=== PATIENT | female | born 1955 | race Caucasian/White ===

== ENCOUNTER 2017-04-16 19:50 | Emergency (ER) | payer OTHER, MEDICAID ==
[~2017-04-16] VITALS: Ht 172.7 cm; Wt 99.8 kg
[2017-04-16 21:06] LABS: Basophils # (auto) 0 uL; Basophils % (auto) 0.2 % (0.0-2.0); Eosinophils # (auto) 0.1 uL; Eosinophils % (auto) 0.7 % (0.0-7.0); Hemoglobin 12.2 g/dL (12.2-16.2); Lymphocytes # (auto) 1.8 uL; Lymphocytes % (auto) 18.8 % (10.0-50.0); Mean Corpuscular Hemoglobin 29.9 pg (28.0-32.0); Mean Corpuscular Hgb Conc. 32.9 g/dL (32.0-36.0); Mean Platelet Volume 9.7 fL (6.9-10.8); Monocytes # (auto) 0.7 uL; Monocytes % (auto) 7.8 % (0.0-12.0); Neutrophils # (auto) 6.8 uL; Neutrophils % (auto) 72.5 % (37.0-80.0); Platelet Count (auto) 171 10^3/uL (140-450); Red Cell Distribution Width 13.6 % (11.8-14.3); White Blood Cell 9.4 10^3/uL (4.4-10.8)
[2017-04-16 21:31] LABS: Albumin 3.5 g/dL (3.4-5.0); Alkaline Phosphatase 92 U/L (45-117); Anion Gap 7 (5-15); Aspartate Aminotransferase 16 U/L (15-37); BUN/Creatinine Ratio 27.3; Bilirubin, Total 0.3 mg/dL (0.2-1.0); Blood Urea Nitrogen 35 mg/dL (7-18); Calcium 8.7 mg/dL (8.5-10.1); Carbon Dioxide 26 mmol/L (21-32); Chloride 107 mmol/L (98-107); GFR African American 55 mL/min; GFR Non-African American 45 mL/min; Glucose 128 mg/dL (74-106); Potassium 4.3 mmol/L (3.5-5.1); Sodium 140 mmol/L (136-145)
[2017-04-16] MEDS ORDERED: ONDANSETRON HCL 4 MG/2 ML VIAL IV ONE (23:00)
[2017-04-17] MEDS ORDERED: ACETAMINOPHEN 325 MG TAB PO ONE (02:58)
[2017-04-17 04:46] VITALS: BP 118/64
== END 2017-04-17 06:26 | disposition home or self-care (01) ==
LOC: EDBD 19:50 → ER 20:06
DX: K29.70 Gastritis, unspecified, without bleeding (principal); I48.91 Unspecified atrial fibrillation; E78.5 Hyperlipidemia, unspecified; I10 Essential (primary) hypertension; Z86.73 Personal history of transient ischemic attack (TIA), and cerebral infarction without residual deficits
CPT/HCPCS: 36415; 71010; 74176; 80053; 84484; 85025; 93005; 96374; 99285; J2405

== ENCOUNTER 2017-12-03 08:28 | Inpatient (IN) | payer OTHER, MEDICAID ==
[~2017-12-03] VITALS: Ht 170.2 cm; Wt 150.1 kg
[2017-12-03] MEDS ORDERED: ALBUTEROL SULF 2.5 MG/0.5ML(0.5%) NEB SOLN NEB ONE (09:15)
[2017-12-03] MEDS ORDERED: IPRATROPIUM BROM 0.5 MG/2.5ML INH SOL NEB ONE (09:15)
[2017-12-03 10:26] LABS: Basophils # (auto) 0.1 uL; Eosinophils # (auto) 0.5 uL; Lymphocytes # (auto) 0.9 uL; Monocytes # (auto) 0.6 uL; Neutrophils # (auto) 4.4 uL; Nucleated Red Blood Cells % 0.1 %
[2017-12-03 10:29] LABS: Eosinophils % (auto) 7.6 % (0.0-7.0); Hematocrit 36.8 % (36.0-46.0); Lymphocytes % (auto) 14.2 % (10.0-50.0); Mean Corpuscular Hgb Conc. 29.8 g/dL (32.0-36.0); Mean Corpuscular Volume 90.4 fL (80.0-100.0); Monocytes % (auto) 8.8 % (0.0-12.0); Neutrophils % (auto) 68.4 % (37.0-80.0); Platelet Count (auto) 134 10^3/uL (140-450); Red Blood Cells 4.07 10^6/uL (4.0-5.20); Red Cell Distribution Width 16.1 % (11.8-14.3); White Blood Cell 6.4 10^3/uL (4.4-10.8)
[2017-12-03 10:45] LABS: Alanine Aminotransferase 14 U/L (13-56); Alkaline Phosphatase 82 U/L (45-117); Anion Gap 7 (5-15); Aspartate Aminotransferase 15 U/L (15-37); BUN/Creatinine Ratio 13.6; Bilirubin, Total 0.5 mg/dL (0.2-1.0); Blood Urea Nitrogen 39 mg/dL (7-18); Calcium 7.8 mg/dL (8.5-10.1); Carbon Dioxide 27 mmol/L (21-32); Chloride 108 mmol/L (98-107); GFR African American 22 mL/min; GFR Non-African American 18 mL/min; Glucose 92 mg/dL (74-106); Sodium 142 mmol/L (136-145); Total Protein 7.4 g/dL (6.4-8.2)
[2017-12-03 10:51] LABS: Potassium 5.8 mmol/L (3.5-5.1)
[2017-12-03] MEDS ORDERED: ALBUTEROL SULF 2.5 MG/0.5ML(0.5%) NEB SOLN NEB STA (11:01)
[2017-12-03] MEDS ORDERED: SODIUM POLYSTYRENE SULF 15GM/60ML SUSP PO ONE (11:15)
[2017-12-03] MEDS ORDERED: FUROSEMIDE 40 MG/4 ML VIAL IV ONE ×2 (11:15→12:45)
[2017-12-03] MEDS ORDERED: SODIUM BICARBONATE 8.4% INJ 50ML SYRINGE IV ONE (11:15)
[2017-12-03] MEDS ORDERED: DEXTROSE (50%) 50ML SYRG IV ONE (11:15)
[2017-12-03] MEDS ORDERED: CALCIUM GLUC 4.65meq/50ml D5AE 50 ML IV ONE (11:15)
[2017-12-03] MEDS ORDERED: InsuLIN REG 1unit/0.01ml Soln (100units/ml) IV ONE (11:15)
[2017-12-03] MEDS ORDERED: DEXTROSE (50%) 50ML SYRG IV PRN (12:30)
[2017-12-03] MEDS ORDERED: LACTULOSE 20Gm/30ML SOLN PO PRN (12:30)
[2017-12-03] MEDS ORDERED: ACETAMINOPHEN 500 MG TAB PO PRN (12:30)
[2017-12-03] MEDS ORDERED: MORPHINE SULFATE 8mg/ml INJ SDV IV PRN ×2 (12:30)
[2017-12-03] MEDS ORDERED: TEMAZEPAM 15 MG CAP PO PRN (12:30)
[2017-12-03] MEDS ORDERED: PROMETHAZINE HCL 25 MG/ML 1ML IV PRN (12:30)
[2017-12-03] MEDS ORDERED: LORazepam 0.5 MG TAB PO PRN (12:30)
[2017-12-03] MEDS ORDERED: ALBUTEROL SULF 2.5 MG/0.5ML(0.5%) NEB SOLN NEB PRN (12:30)
[2017-12-03] MEDS ORDERED: NITROGLYCERIN 0.4 MG SL TAB SL PRN (12:30)
[2017-12-03] MEDS ORDERED: ENOXAPARIN SOD 40 MG/0.4 ML SYRINGE SC ONE (12:45)
[2017-12-03] MEDS ORDERED: CARVEDILOL 3.125 MG TAB PO ONE (12:45)
[2017-12-03] MEDS ORDERED: ASPirin 81 mg TAB PO ONE (12:45)
[2017-12-03] MEDS ORDERED: ENOXAPARIN SOD 100 MG/1 ML SYRINGE SC ONE (13:15)
[2017-12-03] MEDS: SODIUM CHLOR 0.9% PF (SALINE LOCK) 10ML VIAL/SYR IV SCH ×2 (13:20→22:00)
[2017-12-03 13:35] VITALS: BP 104/53
[2017-12-03] MEDS: ISOSORBIDE DINITRATE 10 MG TAB PO SCH ×2 (13:36→22:00)
[2017-12-03 14:11] LABS: Folate (Folic Acid) 16.85 ng/mL (5.38-24)
[2017-12-03 14:55] LABS: Urine Bacteria NONE SEEN /hpf (None Seen); Urine Blood Negative /uL (Negative); Urine Specific Gravity 1.008 (1.001-1.035); Urine WBC 1 /hpf (0 - 5)
[2017-12-03 15:09] LABS: Alcohol, Urine < 3.0 mg/dL (0-5); Amphetamine Screen, Urine NEGATIVE (NEGATIVE); Barbiturate Scree,Urine NEGATIVE (NEGATIVE); Benzodiazephine Screen, Urine NEGATIVE (NEGATIVE); Cannabinoid Screen, Urine NEGATIVE (NEGATIVE); Cocaine Screen, Urine NEGATIVE (NEGATIVE); Opiate Scree,Urine NEGATIVE (NEGATIVE); Phencyclidine Screen, Urine NEGATIVE (NEGATIVE)
[2017-12-03 16:10] LABS: Cholesterol 104 mg/dL (< 200); HDL Cholesterol 43 mg/dL (40-59); LDL Cholesterol 57 mg/dL (< 100); Triglycerides 85 mg/dL (< 150)
[2017-12-03 16:33] LABS: INR 1.33 (0.9-1.15)
[2017-12-03] MEDS ORDERED: WARFARIN SODIUM 5 MG TAB PO ONE (17:00)
[2017-12-03] MEDS: InsuLIN REG 1unit/0.01ml Soln (100units/ml) SC SCH ×2 (17:00→22:00)
[2017-12-03] MEDS: ACCU-CHEK COMFORT CURVE STRIP VI SCH ×2 (17:01→22:00)
[2017-12-03] MEDS ORDERED: FUROSEMIDE 20 MG/2 ML VIAL IV SCH (18:00)
[2017-12-03] MEDS: IPRATROPIUM BROM 0.5 MG/2.5ML INH SOL NEB SCH (18:15)
[2017-12-03] MEDS: ALBUTEROL SULF 2.5 MG/0.5ML(0.5%) NEB SOLN NEB SCH (18:15)
[2017-12-03] MEDS ORDERED: CLINDAMYCIN 600MG IV 50 ML IV ONE (19:30)
[2017-12-03] MEDS ORDERED: cefTRIAXone 1GM/10ml IVPUSH 10 ML IV ONE (19:30)
[2017-12-03] MEDS: FUROSEMIDE 40 MG/4 ML VIAL IV SCH (22:00)
[2017-12-03] MEDS: CARVEDILOL 3.125 MG TAB PO SCH (22:00)
[2017-12-03] MEDS ORDERED: ATORVASTATIN 20 MG TAB PO SCH (22:00)
[2017-12-03] MEDS: ATORVASTATIN 20 MG TAB PO SCH (22:00)
[2017-12-04] MEDS: CLINDAMYCIN 600MG IV 50 ML IV SCH ×3 (02:00→17:21)
[2017-12-04] MEDS: SODIUM CHLOR 0.9% PF (SALINE LOCK) 10ML VIAL/SYR IV SCH ×3 (06:00→22:00)
[2017-12-04] MEDS: ISOSORBIDE DINITRATE 10 MG TAB PO SCH ×3 (06:00→22:00)
[2017-12-04] MEDS: IPRATROPIUM BROM 0.5 MG/2.5ML INH SOL NEB SCH ×4 (06:27→19:08)
[2017-12-04] MEDS: ALBUTEROL SULF 2.5 MG/0.5ML(0.5%) NEB SOLN NEB SCH ×4 (06:27→19:08)
[2017-12-04 06:40] LABS: Basophils # (auto) 0.1 uL; Lymphocytes # (auto) 0.9 uL; Monocytes # (auto) 0.6 uL; Platelet Count (auto) 123 10^3/uL (140-450); Red Cell Distribution Width 16.4 % (11.8-14.3); White Blood Cell 6.1 10^3/uL (4.4-10.8)
[2017-12-04 06:41] LABS: Basophils % (auto) 1.3 % (0.0-2.0); Eosinophils # (auto) 0.6 uL; Eosinophils % (auto) 10.6 % (0.0-7.0); Hemoglobin 10.4 g/dL (12.2-16.2); Lymphocytes % (auto) 14.9 % (10.0-50.0); Mean Corpuscular Hgb Conc. 30.6 g/dL (32.0-36.0); Mean Corpuscular Volume 91.3 fL (80.0-100.0); Monocytes % (auto) 10.3 % (0.0-12.0); Neutrophils # (auto) 3.9 uL; Neutrophils % (auto) 62.9 % (37.0-80.0); Nucleated Red Blood Cells % 0.4 %; Red Blood Cells 3.72 10^6/uL (4.0-5.20)
[2017-12-04] MEDS ORDERED: ALBUMIN 5% 250 ML IV ONE (06:45)
[2017-12-04 06:53] LABS: INR 1.33 (0.9-1.15); Partial Thromboplastin Time 32.3 sec (23.78-33.04)
[2017-12-04 06:59] LABS: Albumin 2.7 g/dL (3.4-5.0); BUN/Creatinine Ratio 16.2; Bilirubin, Total 0.4 mg/dL (0.2-1.0); Calcium 7.8 mg/dL (8.5-10.1); Potassium 5.5 mmol/L (3.5-5.1); Total Protein 6.9 g/dL (6.4-8.2)
[2017-12-04] MEDS: InsuLIN REG 1unit/0.01ml Soln (100units/ml) SC SCH ×4 (07:00→22:00)
[2017-12-04] MEDS: ACCU-CHEK COMFORT CURVE STRIP VI SCH ×4 (07:22→22:00)
[2017-12-04] MEDS: cefTRIAXone 1GM/10ml IVPUSH 10 ML IV SCH (09:20)
[2017-12-04] MEDS: ENOXAPARIN SOD 40 MG/0.4 ML SYRINGE SC SCH (09:30)
[2017-12-04] MEDS ORDERED: ENOXAPARIN SOD 40 MG/0.4 ML SYRINGE SC SCH (10:00)
[2017-12-04] MEDS: CARVEDILOL 3.125 MG TAB PO SCH ×2 (10:00→22:00)
[2017-12-04] MEDS ORDERED: ASPirin 81 mg TAB PO SCH (10:00)
[2017-12-04] MEDS ORDERED: SODIUM POLYSTYRENE SULF 15GM/60ML SUSP PR ONE (11:00)
[2017-12-04] MEDS ORDERED: ALBUTEROL SULF 2.5 MG/0.5ML(0.5%) NEB SOLN NEB ONE (11:00)
[2017-12-04] MEDS ORDERED: ALBUTEROL SULF 2.5 MG/0.5ML(0.5%) NEB SOLN ONE (11:57)
[2017-12-04] MEDS: SODIUM CHLORIDE 0.9% 1,000 ML IV SCH (12:10)
[2017-12-04] MEDS: FUROSEMIDE 40 MG/4 ML VIAL IV SCH ×2 (14:00→22:00)
[2017-12-04] MEDS ORDERED: WARFARIN SODIUM 5 MG TAB PO ONE (17:00)
[2017-12-04 20:00] VITALS: BP 137/83
[2017-12-04] MEDS: ATORVASTATIN 20 MG TAB PO SCH (22:00)
[2017-12-05] VITALS (10 sets, daily range): BP systolic 96–138; BP diastolic 54–79
[2017-12-05] MEDS: SODIUM CHLORIDE 0.9% 1,000 ML IV SCH (00:20)
[2017-12-05] MEDS: CLINDAMYCIN 600MG IV 50 ML IV SCH ×4 (01:45→21:26)
[2017-12-05] MEDS: ALBUTEROL SULF 2.5 MG/0.5ML(0.5%) NEB SOLN NEB SCH ×4 (05:38→18:43)
[2017-12-05] MEDS: IPRATROPIUM BROM 0.5 MG/2.5ML INH SOL NEB SCH ×4 (05:38→18:43)
[2017-12-05 05:56] LABS: Basophils # (auto) 0.1 uL; Basophils % (auto) 0.8 % (0.0-2.0); Eosinophils # (auto) 0.9 uL; Eosinophils % (auto) 13.6 % (0.0-7.0); Hematocrit 31.2 % (36.0-46.0); Hemoglobin 9.7 g/dL (12.2-16.2); Lymphocytes # (auto) 0.9 uL; Lymphocytes % (auto) 14.1 % (10.0-50.0); Mean Corpuscular Volume 90.3 fL (80.0-100.0); Monocytes # (auto) 0.7 uL; Monocytes % (auto) 10.8 % (0.0-12.0); Neutrophils % (auto) 60.7 % (37.0-80.0); Nucleated Red Blood Cells % 0.1 %; Platelet Count (auto) 127 10^3/uL (140-450); Red Blood Cells 3.46 10^6/uL (4.0-5.20); Red Cell Distribution Width 16.2 % (11.8-14.3); White Blood Cell 6.6 10^3/uL (4.4-10.8)
[2017-12-05] MEDS: ISOSORBIDE DINITRATE 10 MG TAB PO SCH ×3 (06:00→21:36)
[2017-12-05 06:02] LABS: INR 1.55 (0.9-1.15); Partial Thromboplastin Time 32.2 sec (23.78-33.04); Prothrombin Time 16.2 sec (9.27-12.13)
[2017-12-05 06:06] LABS: BUN/Creatinine Ratio 20.2; Calcium 7.7 mg/dL (8.5-10.1); Magnesium 1.5 mg/dL (1.6-2.6); Potassium 5.3 mmol/L (3.5-5.1)
[2017-12-05] MEDS: ACCU-CHEK COMFORT CURVE STRIP VI SCH ×4 (06:06→21:26)
[2017-12-05] MEDS: InsuLIN REG 1unit/0.01ml Soln (100units/ml) SC SCH ×4 (06:11→21:26)
[2017-12-05] MEDS: SODIUM CHLOR 0.9% PF (SALINE LOCK) 10ML VIAL/SYR IV SCH ×3 (06:11→21:40)
[2017-12-05] MEDS: cefTRIAXone 1GM/10ml IVPUSH 10 ML IV SCH (08:51)
[2017-12-05] MEDS: CARVEDILOL 3.125 MG TAB PO SCH ×2 (10:43→21:37)
[2017-12-05] MEDS: FUROSEMIDE 40 MG/4 ML VIAL IV SCH (10:43)
[2017-12-05] MEDS: ENOXAPARIN SOD 40 MG/0.4 ML SYRINGE SC SCH (10:43)
[2017-12-05] MEDS ORDERED: WARFARIN SODIUM 5 MG TAB PO ONE (17:00)
[2017-12-05] MEDS: ATORVASTATIN 20 MG TAB PO SCH (21:26)
[2017-12-06] MEDS: ALBUTEROL SULF 2.5 MG/0.5ML(0.5%) NEB SOLN NEB SCH ×4 (00:46→19:06)
[2017-12-06] MEDS: IPRATROPIUM BROM 0.5 MG/2.5ML INH SOL NEB SCH ×4 (00:46→19:06)
[2017-12-06 05:00] VITALS: BP 154/85
[2017-12-06] MEDS: SODIUM CHLOR 0.9% PF (SALINE LOCK) 10ML VIAL/SYR IV SCH ×3 (05:33→22:13)
[2017-12-06] MEDS: ISOSORBIDE DINITRATE 10 MG TAB PO SCH ×3 (05:34→21:11)
[2017-12-06] MEDS: ACCU-CHEK COMFORT CURVE STRIP VI SCH ×4 (05:35→22:14)
[2017-12-06] MEDS: InsuLIN REG 1unit/0.01ml Soln (100units/ml) SC SCH ×4 (05:35→22:00)
[2017-12-06 06:08] LABS: INR 1.48 (0.9-1.15); Partial Thromboplastin Time 24.1 sec (23.78-33.04); Prothrombin Time 15.5 sec (9.27-12.13)
[2017-12-06 06:11] LABS: Albumin 2.6 g/dL (3.4-5.0); BUN/Creatinine Ratio 22.3; Bilirubin, Total 0.4 mg/dL (0.2-1.0); Calcium 7.6 mg/dL (8.5-10.1); Potassium 4.7 mmol/L (3.5-5.1); Total Protein 6.9 g/dL (6.4-8.2)
[2017-12-06 09:00] VITALS: BP 124/70
[2017-12-06 09:38] VITALS: BP 126/99
[2017-12-06] MEDS: CLINDAMYCIN 600MG IV 50 ML IV SCH ×2 (10:40→17:47)
[2017-12-06] MEDS: FUROSEMIDE 40 MG/4 ML VIAL IV SCH (10:41)
[2017-12-06] MEDS: CARVEDILOL 3.125 MG TAB PO SCH ×2 (10:41→21:11)
[2017-12-06] MEDS: cefTRIAXone 1GM/10ml IVPUSH 10 ML IV SCH (10:41)
[2017-12-06] MEDS: ENOXAPARIN SOD 40 MG/0.4 ML SYRINGE SC SCH (10:42)
[2017-12-06 13:00] VITALS: BP 118/60
[2017-12-06 13:49] LABS: Basophils # (auto) 0.1 uL; Basophils % (auto) 2.3 % (0.0-2.0); Eosinophils # (auto) 0.9 uL; Eosinophils % (auto) 14.7 % (0.0-7.0); Hemoglobin 10.3 g/dL (12.2-16.2); Lymphocytes # (auto) 1.2 uL; Lymphocytes % (auto) 19.1 % (10.0-50.0); Mean Corpuscular Hemoglobin 26.8 pg (28.0-32.0); Mean Corpuscular Hgb Conc. 30.3 g/dL (32.0-36.0); Mean Corpuscular Volume 88.2 fL (80.0-100.0); Monocytes # (auto) 0.7 uL; Monocytes % (auto) 10.5 % (0.0-12.0); Neutrophils # (auto) 3.4 uL; Neutrophils % (auto) 53.4 % (37.0-80.0); Nucleated Red Blood Cells % 0.1 %; Platelet Count (auto) 109 10^3/uL (140-450); Red Blood Cells 3.86 10^6/uL (4.0-5.20); Red Cell Distribution Width 15.9 % (11.8-14.3); White Blood Cell 6.3 10^3/uL (4.4-10.8)
[2017-12-06] MEDS: HYDROcodone-ACET 5/325MG TAB PO PRN ×2 (14:26→21:12)
[2017-12-06 16:54] VITALS: BP 129/69
[2017-12-06] MEDS ORDERED: WARFARIN SODIUM 10 MG TAB PO ONE (17:00)
[2017-12-06] MEDS: ATORVASTATIN 20 MG TAB PO SCH (21:09)
[2017-12-06 21:13] VITALS: BP 107/61
[2017-12-07] MEDS: IPRATROPIUM BROM 0.5 MG/2.5ML INH SOL NEB SCH ×3 (00:10→11:40)
[2017-12-07] MEDS: ALBUTEROL SULF 2.5 MG/0.5ML(0.5%) NEB SOLN NEB SCH ×3 (00:10→11:40)
[2017-12-07] MEDS: CLINDAMYCIN 600MG IV 50 ML IV SCH ×2 (03:08→10:29)
[2017-12-07 05:22] VITALS: BP 95/62
[2017-12-07 05:30] LABS: Hemoglobin 10.3 g/dL (12.2-16.2); Mean Corpuscular Hemoglobin 27.3 pg (28.0-32.0); Red Blood Cells 3.77 10^6/uL (4.0-5.20)
[2017-12-07 05:34] LABS: Hematocrit 33.9 % (36.0-46.0); Mean Corpuscular Hgb Conc. 30.4 g/dL (32.0-36.0); Mean Corpuscular Volume 89.8 fL (80.0-100.0); Platelet Count (auto) 120 10^3/uL (140-450); Red Cell Distribution Width 16.5 % (11.8-14.3); White Blood Cell 4.8 10^3/uL (4.4-10.8)
[2017-12-07 05:39] LABS: Band Neutrophils % (manual) 0; Blast Cells 0; Metamyelocytes % 0; Myelocytes % 0; Promyelocytes % 0; Reactive Lymphocytes 0
[2017-12-07 05:48] LABS: BUN/Creatinine Ratio 21.6; Calcium 7.7 mg/dL (8.5-10.1); INR 1.8 (0.9-1.15); Partial Thromboplastin Time 31.8 sec (23.78-33.04); Potassium 5.1 mmol/L (3.5-5.1); Prothrombin Time 18.6 sec (9.27-12.13)
[2017-12-07] MEDS: ISOSORBIDE DINITRATE 10 MG TAB PO SCH ×2 (06:00→14:00)
[2017-12-07 06:13] LABS: Basophils % (manual) 1 (0.0-2.0); Eosinophils % (manual) 24 (0-7); Lymphocytes % (manual) 18 (10.0-50.0); Monocytes % (manual) 17 (0-12)
[2017-12-07] MEDS: SODIUM CHLOR 0.9% PF (SALINE LOCK) 10ML VIAL/SYR IV SCH ×2 (06:24→15:57)
[2017-12-07] MEDS: InsuLIN REG 1unit/0.01ml Soln (100units/ml) SC SCH ×3 (06:24→17:00)
[2017-12-07] MEDS: ACCU-CHEK COMFORT CURVE STRIP VI SCH ×3 (06:25→17:00)
[2017-12-07 08:31] VITALS: BP 109/48
[2017-12-07] MEDS: cefTRIAXone 1GM/10ml IVPUSH 10 ML IV SCH (09:58)
[2017-12-07] MEDS: CARVEDILOL 3.125 MG TAB PO SCH (10:00)
[2017-12-07] MEDS: FUROSEMIDE 40 MG/4 ML VIAL IV SCH (10:29)
[2017-12-07 12:09] VITALS: BP 103/69
[2017-12-07] MEDS ORDERED: WARFARIN SODIUM 10 MG TAB PO ONE (17:00)
[2017-12-07 17:28] VITALS: BP 129/78
[2017-12-08] MEDS ORDERED: ENOXAPARIN SOD 60 MG/0.6 ML SYRINGE SC SCH (10:00)
== END 2017-12-07 17:50 | disposition home or self-care (01) | DRG 682 ==
LOC: EDBD 08:28 → ER 08:28 → OVERFLOW 08:29 → DOU IN ICU 12-04 14:53 → TELE-EAST 12-05 14:33
PROVIDERS: ADMIT Internal Medicine; ATTEND Internal Medicine
DX: N17.9 Acute kidney failure, unspecified (principal); G93.41 Metabolic encephalopathy; I50.43 Acute on chronic combined systolic (congestive) and diastolic (congestive) heart failure; E11.21 Type 2 diabetes mellitus with diabetic nephropathy; D69.6 Thrombocytopenia, unspecified; E11.22 Type 2 diabetes mellitus with diabetic chronic kidney disease; E11.40 Type 2 diabetes mellitus with diabetic neuropathy, unspecified; I95.9 Hypotension, unspecified; G45.9 Transient cerebral ischemic attack, unspecified; M86.8X7 Other osteomyelitis, ankle and foot; I13.0 Hypertensive heart and chronic kidney disease with heart failure and stage 1 through stage 4 chronic kidney disease, or unspecified chronic kidney disease; Z68.43 Body mass index [BMI] 50.0-59.9, adult; L03.311 Cellulitis of abdominal wall; E11.69 Type 2 diabetes mellitus with other specified complication; N18.3 Chronic kidney disease, stage 3 (moderate); W18.39XA Other fall on same level, initial encounter; I48.91 Unspecified atrial fibrillation; E66.01 Morbid (severe) obesity due to excess calories; E87.5 Hyperkalemia; E88.09 Other disorders of plasma-protein metabolism, not elsewhere classified; I25.2 Old myocardial infarction; N18.9 Chronic kidney disease, unspecified; G47.33 Obstructive sleep apnea (adult) (pediatric); D63.8 Anemia in other chronic diseases classified elsewhere; E78.5 Hyperlipidemia, unspecified; K59.00 Constipation, unspecified; F41.9 Anxiety disorder, unspecified; G47.00 Insomnia, unspecified; E87.6 Hypokalemia; S89.92XA Unspecified injury of left lower leg, initial encounter; S89.91XA Unspecified injury of right lower leg, initial encounter; J44.9 Chronic obstructive pulmonary disease, unspecified; I25.10 Atherosclerotic heart disease of native coronary artery without angina pectoris; T36.8X5A Adverse effect of other systemic antibiotics, initial encounter; R09.02 Hypoxemia; R79.1 Abnormal coagulation profile; Z79.01 Long term (current) use of anticoagulants; Z79.899 Other long term (current) drug therapy; Z82.49 Family history of ischemic heart disease and other diseases of the circulatory system; Z83.3 Family history of diabetes mellitus; Y93.89 Activity, other specified; Y92.89 Other specified places as the place of occurrence of the external cause; Y99.8 Other external cause status; Z99.81 Dependence on supplemental oxygen; Z90.89 Acquired absence of other organs; Z80.8 Family history of malignant neoplasm of other organs or systems
CPT/HCPCS: 36415; 70450; 71045; 73562; 76775; 80048; 80053; 80061; 80307; 81001; 82550; 82570; 82607; 82746; 82962; 83036; 83735; 83880; 84132; 84156; 84166; 84443; 84484; 85007; 85025; 85027; 85379; 85610; 85652; 85730; 86141; 87081; 93886; 93970; 94640; 95819; 96365; 96372; 96375; 97110; 97116; 97163; 97530; G0378; J0610; J1815; J2270; J3490

== ENCOUNTER 2017-12-14 04:50 | Inpatient (IN) | payer OTHER, MEDICAID ==
[~2017-12-14] VITALS: Ht 170.2 cm; Wt 151.0 kg
[2017-12-14] MEDS ORDERED: DEXTROSE 50% SYRINGE 50 ML IV ONE (05:22)
[2017-12-14] MEDS ORDERED: DEXTROSE (50%) 50ML SYRG IV ONE (06:30)
[2017-12-14 07:02] LABS: Basophils # (auto) 0 uL; Eosinophils # (auto) 0 uL; Eosinophils % (auto) 0.2 % (0.0-7.0); Lymphocytes # (auto) 0.9 uL; Monocytes # (auto) 0.7 uL; Monocytes % (auto) 8.2 % (0.0-12.0); White Blood Cell 8.5 10^3/uL (4.4-10.8)
[2017-12-14 07:04] LABS: Basophils % (auto) 0.4 % (0.0-2.0); Hematocrit 38.4 % (36.0-46.0); Hemoglobin 11.2 g/dL (12.2-16.2); Lymphocytes % (auto) 10.5 % (10.0-50.0); Mean Corpuscular Hgb Conc. 29.1 g/dL (32.0-36.0); Mean Corpuscular Volume 92.8 fL (80.0-100.0); Neutrophils # (auto) 6.8 uL; Neutrophils % (auto) 80.7 % (37.0-80.0); Nucleated Red Blood Cells % 0.2 %; Platelet Count (auto) 136 10^3/uL (140-450); Red Blood Cells 4.14 10^6/uL (4.0-5.20); Red Cell Distribution Width 17.3 % (11.8-14.3)
[2017-12-14 07:24] LABS: Albumin 3.3 g/dL (3.4-5.0); BUN/Creatinine Ratio 15.3; Bilirubin, Total 0.5 mg/dL (0.2-1.0); Calcium 7.5 mg/dL (8.5-10.1); Potassium 4.7 mmol/L (3.5-5.1); Total Protein 8.6 g/dL (6.4-8.2)
[2017-12-14] MEDS ORDERED: DEXTROSE 10% 1,000 ML IV SCH ×2 (08:30→13:30)
[2017-12-14] MEDS ORDERED: NITROGLYCERIN 0.4 MG SL TAB SL PRN (09:00)
[2017-12-14] MEDS ORDERED: MORPHINE SULFATE 8mg/ml INJ SDV IV PRN ×2 (09:00)
[2017-12-14] MEDS ORDERED: ACETAMINOPHEN 325 MG TAB PO PRN (09:00)
[2017-12-14] MEDS ORDERED: ONDANSETRON HCL 4 MG/2 ML VIAL IV PRN (09:00)
[2017-12-14] MEDS ORDERED: DOCUSATE SOD 100 MG CAP PO PRN (09:00)
[2017-12-14] MEDS ORDERED: HYDROcodone-ACET 5/325MG TAB PO PRN (09:00)
[2017-12-14] MEDS ORDERED: cloNIDine HCL 0.1 MG TAB PO PRN (09:15)
[2017-12-14] MEDS ORDERED: ENALAPRILAT 1.25 MG/ML-1ML VIAL IV PRN (09:15)
[2017-12-14] MEDS: ACCU-CHEK COMFORT CURVE STRIP VI SCH ×15 (09:21→23:35)
[2017-12-14] MEDS ORDERED: ASPirin 300 MG RECTAL SUPP PR SCH (10:00)
[2017-12-14] MEDS: MULTIPLE VITAMIN TAB PO SCH (10:00)
[2017-12-14] MEDS: FAMOTIDINE 20 MG TAB PO SCH (10:00)
[2017-12-14] MEDS: DEXTROSE (50%) 50ML SYRG IV PRN ×6 (10:33→23:40)
[2017-12-14 11:21] LABS: % Iron Saturation 7.5 % (15-50)
[2017-12-14] MEDS ORDERED: AZITHROMYCIN 500MG/ 250ML 250 ML IV ONE (11:30)
[2017-12-14] MEDS ORDERED: cefTRIAXone 1GM/10ml IVPUSH 10 ML IV ONE (11:30)
[2017-12-14] MEDS ORDERED: GLUCAGON HYDROCHLORIDE (RDNA) 1 MG VIAL SUBCUT ONE (21:45)
[2017-12-14] MEDS ORDERED: ATORVASTATIN 20 MG TAB PO SCH (22:00)
[2017-12-15] MEDS: ACCU-CHEK COMFORT CURVE STRIP VI SCH ×17 (00:34→17:27)
[2017-12-15] MEDS: DEXTROSE (50%) 50ML SYRG IV PRN ×8 (01:49→15:59)
[2017-12-15] MEDS ORDERED: DEXTROSE 10% 1,000 ML IV SCH ×2 (03:00→06:30)
[2017-12-15 03:54] LABS: Urine Blood 2+ /uL (Negative); Urine Budding Yeast MANY /hpf (None Seen); Urine Hyaline Cast MANY /lpf (0 - 2); Urine Mucus FEW (None Seen); Urine Specific Gravity 1.018 (1.001-1.035); Urine WBC 9 /hpf (0 - 5)
[2017-12-15 03:55] LABS: Urine Bacteria MOD /hpf (None Seen)
[2017-12-15 07:22] LABS: Basophils # (auto) 0.1 uL; Eosinophils # (auto) 0.2 uL; Hemoglobin 9.7 g/dL (12.2-16.2); Lymphocytes # (auto) 1.1 uL; Lymphocytes % (auto) 12.5 % (10.0-50.0); Monocytes % (auto) 11.2 % (0.0-12.0); Platelet Count (auto) 157 10^3/uL (140-450)
[2017-12-15 07:27] LABS: Basophils % (auto) 1.1 % (0.0-2.0); Eosinophils % (auto) 2.5 % (0.0-7.0); Hematocrit 31.8 % (36.0-46.0); Mean Corpuscular Hemoglobin 27.5 pg (28.0-32.0); Mean Corpuscular Hgb Conc. 30.4 g/dL (32.0-36.0); Mean Corpuscular Volume 90.5 fL (80.0-100.0); Neutrophils # (auto) 6.5 uL; Neutrophils % (auto) 72.7 % (37.0-80.0); Nucleated Red Blood Cells % 0.1 %; Red Blood Cells 3.52 10^6/uL (4.0-5.20); Red Cell Distribution Width 17.2 % (11.8-14.3)
[2017-12-15 08:18] LABS: Albumin 2.6 g/dL (3.4-5.0); BUN/Creatinine Ratio 19.4; Bilirubin, Total 0.5 mg/dL (0.2-1.0); Calcium 6.7 mg/dL (8.5-10.1); Potassium 4.7 mmol/L (3.5-5.1); Total Protein 7.1 g/dL (6.4-8.2)
[2017-12-15 09:00] VITALS: BP 114/60
[2017-12-15] MEDS ORDERED: cefTRIAXone 1GM/10ml IVPUSH 10 ML IV SCH (09:00)
[2017-12-15] MEDS: MULTIPLE VITAMIN TAB PO SCH (09:19)
[2017-12-15] MEDS: FAMOTIDINE 20 MG TAB PO SCH (09:19)
[2017-12-15] MEDS ORDERED: ASPirin 325 MG TAB PO SCH (10:00)
[2017-12-15] MEDS ORDERED: AZITHROMYCIN 500MG/ 250ML 250 ML IV SCH (10:00)
[2017-12-15] MEDS ORDERED: ISOS30TA4 PO (11:12)
[2017-12-15] MEDS ORDERED: DIGO0.1262 PO (11:12)
[2017-12-15] MEDS ORDERED: FURO20TA3 PO (11:12)
[2017-12-15] MEDS ORDERED: GEMF600T3 PO (11:12)
[2017-12-15] MEDS ORDERED: FAM20T PO (11:12)
[2017-12-15] MEDS ORDERED: ONDA4TAB5 PO (11:12)
[2017-12-15] MEDS ORDERED: GLIM1TAB2 PO (11:13)
[2017-12-15 11:50] VITALS: BP 94/49
[2017-12-15] MEDS: DEXTROSE 10% 1,000 ML IV SCH ×2 (13:15→14:01)
[2017-12-15 15:50] VITALS: BP 105/56
[2017-12-15 18:04] LABS: % Iron Saturation 8.4 % (15-50)
== END 2017-12-15 18:32 | disposition short-term general hospital (02) | DRG 177 ==
LOC: EDBD 04:50 → ER 04:53 → TELE 04:54 → DOU IN ICU 12-15 09:04
PROVIDERS: ADMIT Internal Medicine; ATTEND Family Medicine
PROC: 02HV33Z Insertion of Infusion Device into Superior Vena Cava, Percutaneous Approach (ICD-10-PCS; principal; 2017-12-14)
DX: J69.0 Pneumonitis due to inhalation of food and vomit (principal); G93.41 Metabolic encephalopathy; E44.0 Moderate protein-calorie malnutrition; I48.92 Unspecified atrial flutter; G93.1 Anoxic brain damage, not elsewhere classified; N18.4 Chronic kidney disease, stage 4 (severe); E11.649 Type 2 diabetes mellitus with hypoglycemia without coma; D69.6 Thrombocytopenia, unspecified; I48.2 Chronic atrial fibrillation; E11.21 Type 2 diabetes mellitus with diabetic nephropathy; E66.01 Morbid (severe) obesity due to excess calories; E11.40 Type 2 diabetes mellitus with diabetic neuropathy, unspecified; E11.22 Type 2 diabetes mellitus with diabetic chronic kidney disease; I12.9 Hypertensive chronic kidney disease with stage 1 through stage 4 chronic kidney disease, or unspecified chronic kidney disease; D50.9 Iron deficiency anemia, unspecified; R29.6 Repeated falls; E78.5 Hyperlipidemia, unspecified; I70.90 Unspecified atherosclerosis; G47.33 Obstructive sleep apnea (adult) (pediatric); M89.9 Disorder of bone, unspecified; I25.10 Atherosclerotic heart disease of native coronary artery without angina pectoris; J44.9 Chronic obstructive pulmonary disease, unspecified; K57.90 Diverticulosis of intestine, part unspecified, without perforation or abscess without bleeding; Z79.01 Long term (current) use of anticoagulants; Z82.49 Family history of ischemic heart disease and other diseases of the circulatory system; I25.2 Old myocardial infarction; Z86.73 Personal history of transient ischemic attack (TIA), and cerebral infarction without residual deficits; Z83.3 Family history of diabetes mellitus
CPT/HCPCS: 36415; 36556; 51702; 70450; 71045; 71250; 72125; 74176; 76705; 80053; 81001; 82533; 82947; 82962; 83036; 83540; 83550; 83605; 84443; 85025; 87040; 87081; 87086; 92610; 93005; 93886; 96365; 96375; 96376; 99291

== ENCOUNTER 2018-02-12 07:39 | Inpatient (IN) | payer OTHER, MEDICAID ==
[~2018-02-12] VITALS: Ht 172.7 cm; Wt 141.6 kg
[~2018-02-12 07:39] MED LIST: DIGO0.1262 PO; FAM20T PO; FURO20TA3 PO; GEMF600T3 PO; GLIM1TAB2 PO; ISOS30TA4 PO; ONDA4TAB5 PO
[2018-02-12] MEDS ORDERED: SODIUM CHLORIDE 0.9% 1,000 ML IV ONE (08:18)
[2018-02-12] MEDS ORDERED: KETOROLAC TROMETH 30 MG/ML 1ML VIAL IV ONE (09:30)
[2018-02-12] MEDS ORDERED: AZITHROMYCIN 500MG/ 250ML 250 ML IV ONE (10:15)
[2018-02-12] MEDS ORDERED: cefTRIAXone 1GM/10ml IVPUSH 10 ML IV ONE (10:15)
[2018-02-12] MEDS ORDERED: DEXTROSE (50%) 50ML SYRG IV PRN ×2 (10:30→10:45)
[2018-02-12] MEDS ORDERED: ISOSORBIDE MONONITRATE 60 MG TAB PO ONE (10:30)
[2018-02-12] MEDS ORDERED: DIGOXIN 0.125 MG TAB PO ONE (10:30)
[2018-02-12] MEDS ORDERED: FUROSEMIDE 20 MG TAB PO ONE (10:30)
[2018-02-12 10:39] LABS: Basophils # (auto) 0 uL; Basophils % (auto) 0.6 % (0.0-2.0); Eosinophils # (auto) 0.1 uL; Hemoglobin 9.2 g/dL (12.2-16.2); Lymphocytes # (auto) 0.7 uL; Monocytes # (auto) 0.6 uL; Neutrophils # (auto) 4.6 uL; Nucleated Red Blood Cells % 0.1 %
[2018-02-12 10:42] LABS: Lymphocytes % (auto) 12.1 % (10.0-50.0); Mean Corpuscular Hemoglobin 25.6 pg (28.0-32.0); Mean Corpuscular Hgb Conc. 29.5 g/dL (32.0-36.0); Mean Corpuscular Volume 86.5 fL (80.0-100.0); Monocytes % (auto) 9.7 % (0.0-12.0); Neutrophils % (auto) 76.6 % (37.0-80.0); Platelet Count (auto) 123 10^3/uL (140-450); Red Blood Cells 3.59 10^6/uL (4.0-5.20); Red Cell Distribution Width 17.8 % (11.8-14.3); White Blood Cell 5.9 10^3/uL (4.4-10.8)
[2018-02-12] MEDS ORDERED: hydrALAZINE HCL 25 MG TAB PO PRN (10:45)
[2018-02-12] MEDS ORDERED: MORPHINE SULF INJ 2 MG/ML SYRINGE 1ML IV PRN (10:45)
[2018-02-12] MEDS ORDERED: TEMAZEPAM 15 MG CAP PO PRN (10:45)
[2018-02-12] MEDS ORDERED: HYDROcodone-ACET 5/325MG TAB PO PRN (10:45)
[2018-02-12] MEDS ORDERED: MILK OF MAGNESIA 30ML SUSP PO PRN (10:45)
[2018-02-12] MEDS ORDERED: DOCUSATE SOD 100 MG CAP PO PRN (10:45)
[2018-02-12] MEDS ORDERED: NITROGLYCERIN 0.4 MG SL TAB SL PRN (10:45)
[2018-02-12] MEDS ORDERED: FLEET MINERAL OIL ENEMA 133 ML PR PRN (10:45)
[2018-02-12] MEDS ORDERED: ACETAMINOPHEN 325 MG TAB PO PRN (10:45)
[2018-02-12] MEDS ORDERED: ALPRAZolam 0.5 MG TAB PO PRN (10:45)
[2018-02-12] MEDS ORDERED: ONDANSETRON HCL 4 MG/2 ML VIAL IV PRN (10:45)
[2018-02-12] MEDS ORDERED: cloNIDine HCL 0.1 MG TAB PO PRN (10:45)
[2018-02-12] MEDS: FAMOTIDINE 20 MG TAB PO SCH (11:00)
[2018-02-12] MEDS: ASCORBIC ACID 500 MG TAB PO SCH ×2 (11:00→22:00)
[2018-02-12] MEDS: MULTIPLE VITAMIN TAB PO SCH (11:00)
[2018-02-12] MEDS: ZINC SULFATE 220mg CAP or TAB PO SCH (11:00)
[2018-02-12] MEDS ORDERED: GEMFIBROZIL 600 MG TAB PO SCH (11:00)
[2018-02-12 11:03] LABS: Alanine Aminotransferase 10 U/L (13-56); Alkaline Phosphatase 83 U/L (45-117); Anion Gap 4 (5-15); Aspartate Aminotransferase 16 U/L (15-37); BUN/Creatinine Ratio 26.5; Bilirubin, Total 0.6 mg/dL (0.2-1.0); Blood Urea Nitrogen 40 mg/dL (7-18); Calcium 8.4 mg/dL (8.5-10.1); Carbon Dioxide 30 mmol/L (21-32); Chloride 104 mmol/L (98-107); GFR African American 45 mL/min; GFR Non-African American 37 mL/min; Glucose 109 mg/dL (74-106); Potassium 5.1 mmol/L (3.5-5.1); Sodium 138 mmol/L (136-145); Total Protein 7.9 g/dL (6.4-8.2)
[2018-02-12 11:14] LABS: INR 1.58 (0.9-1.15); Partial Thromboplastin Time 28.9 sec (23.78-33.04); Prothrombin Time 16.5 sec (9.27-12.13)
[2018-02-12] MEDS: InsuLIN REG 1unit/0.01ml Soln (100units/ml) SC SCH ×3 (11:30→22:00)
[2018-02-12] MEDS ORDERED: InsuLIN REG 1unit/0.01ml Soln (100units/ml) SC SCH (11:30)
[2018-02-12] MEDS: ACCU-CHEK COMFORT CURVE STRIP VI SCH ×6 (11:30→22:00)
[2018-02-12 12:04] LABS: Urine Amorphous Crystal FEW /hpf (None Seen); Urine Bacteria FEW /hpf (None Seen); Urine Blood Negative /uL (Negative); Urine Specific Gravity 1.008 (1.001-1.035); Urine WBC <1 /hpf (0 - 5)
[2018-02-12 12:15] VITALS: BP 113/51
[2018-02-12 12:54] VITALS: BP 113/51
[2018-02-12] MEDS ORDERED: PHYTONADIONE (VIT K)10 MG/ML 1ML VIAL SUBCUT ONE (13:30)
[2018-02-12] MEDS: SODIUM CHLOR 0.9% PF (SALINE LOCK) 10ML VIAL/SYR IV SCH ×2 (13:55→22:00)
[2018-02-12] MEDS: FUROSEMIDE 20 MG TAB PO SCH (17:20)
[2018-02-12 17:28] VITALS: BP 126/63
[2018-02-12] MEDS: Ensure Enlive Strawberry 8oz Bottle PO SCH (17:29)
[2018-02-12 20:21] VITALS: BP 112/73
[2018-02-12 22:00] VITALS: BP 112/73
[2018-02-12] MEDS: METOPROLOL TARTRATE 25 MG TAB PO SCH (22:00)
[2018-02-12] MEDS: GEMFIBROZIL 600 MG TAB PO SCH (22:00)
[2018-02-12] MEDS: MORPHINE SULFATE 4 MG/ML SYR/VIAL IV PRN (22:57)
[2018-02-13 05:35] VITALS: BP 112/43
[2018-02-13] MEDS: SODIUM CHLOR 0.9% PF (SALINE LOCK) 10ML VIAL/SYR IV SCH ×2 (06:00→14:12)
[2018-02-13] MEDS: FUROSEMIDE 20 MG TAB PO SCH (06:00)
[2018-02-13] MEDS: InsuLIN REG 1unit/0.01ml Soln (100units/ml) SC SCH ×2 (06:49→11:30)
[2018-02-13] MEDS: ACCU-CHEK COMFORT CURVE STRIP VI SCH ×4 (06:49→12:19)
[2018-02-13 09:00] VITALS: BP 110/58
[2018-02-13] MEDS ORDERED: cefTRIAXone 1GM/10ml IVPUSH 10 ML IV SCH (09:00)
[2018-02-13] MEDS: Ensure Enlive Strawberry 8oz Bottle PO SCH ×2 (09:26→12:19)
[2018-02-13] MEDS: METOPROLOL TARTRATE 25 MG TAB PO SCH (10:00)
[2018-02-13] MEDS: GEMFIBROZIL 600 MG TAB PO SCH (10:00)
[2018-02-13] MEDS ORDERED: DIGOXIN 0.125 MG TAB PO SCH (10:00)
[2018-02-13] MEDS ORDERED: ISOSORBIDE MONONITRATE 60 MG TAB PO SCH (10:00)
[2018-02-13] MEDS ORDERED: AZITHROMYCIN 500MG/ 250ML 250 ML IV SCH (10:00)
[2018-02-13] MEDS ORDERED: CITALOPRAM HYDROBR 20 MG TAB PO SCH (10:00)
[2018-02-13] MEDS ORDERED: JANUVIA 100 MG PO SCH (10:00)
[2018-02-13] MEDS: FAMOTIDINE 20 MG TAB PO SCH (10:18)
[2018-02-13] MEDS: MULTIPLE VITAMIN TAB PO SCH (10:18)
[2018-02-13] MEDS: ZINC SULFATE 220mg CAP or TAB PO SCH (10:18)
[2018-02-13] MEDS: ASCORBIC ACID 500 MG TAB PO SCH (10:18)
[2018-02-13 10:35] LABS: Basophils # (auto) 0.1 uL; Basophils % (auto) 1.3 % (0.0-2.0); Eosinophils # (auto) 0.1 uL; Monocytes # (auto) 0.8 uL; Neutrophils # (auto) 3.2 uL; White Blood Cell 5.5 10^3/uL (4.4-10.8)
[2018-02-13 10:37] LABS: Eosinophils % (auto) 1.4 % (0.0-7.0); Hematocrit 30.3 % (36.0-46.0); Hemoglobin 8.5 g/dL (12.2-16.2); Lymphocytes # (auto) 1.3 uL; Lymphocytes % (auto) 24.4 % (10.0-50.0); Mean Corpuscular Hemoglobin 25.5 pg (28.0-32.0); Mean Corpuscular Hgb Conc. 28.2 g/dL (32.0-36.0); Mean Corpuscular Volume 90.5 fL (80.0-100.0); Monocytes % (auto) 14.6 % (0.0-12.0); Neutrophils % (auto) 58.3 % (37.0-80.0); Nucleated Red Blood Cells % 0.3 %; Platelet Count (auto) 134 10^3/uL (140-450); Red Blood Cells 3.35 10^6/uL (4.0-5.20); Red Cell Distribution Width 18.6 % (11.8-14.3)
[2018-02-13 10:49] LABS: INR 1.94 (0.9-1.15)
[2018-02-13 10:52] LABS: Albumin 2.8 g/dL (3.4-5.0); BUN/Creatinine Ratio 25.9; Bilirubin, Total 0.4 mg/dL (0.2-1.0); Calcium 7.8 mg/dL (8.5-10.1); Total Protein 7.5 g/dL (6.4-8.2)
[2018-02-13 11:12] LABS: Potassium 5.6 mmol/L (3.5-5.1)
[2018-02-13 13:27] VITALS: BP 117/53
[2018-02-13 14:50] VITALS: BP 110/58
[2018-02-13] MEDS: MORPHINE SULFATE 4 MG/ML SYR/VIAL IV PRN (17:03)
== END 2018-02-13 18:15 | disposition short-term general hospital (02) | DRG 533 ==
LOC: EDBD 07:39 → ER 07:40 → TELE 07:41 → TELE-CENTR 12:10
PROVIDERS: ADMIT Internal Medicine; ATTEND Internal Medicine
DX: S72.422A Displaced fracture of lateral condyle of left femur, initial encounter for closed fracture (principal); G93.41 Metabolic encephalopathy; J18.9 Pneumonia, unspecified organism; J98.11 Atelectasis; I48.92 Unspecified atrial flutter; N18.4 Chronic kidney disease, stage 4 (severe); J90 Pleural effusion, not elsewhere classified; D68.69 Other thrombophilia; W18.39XA Other fall on same level, initial encounter; K21.9 Gastro-esophageal reflux disease without esophagitis; I48.91 Unspecified atrial fibrillation; E66.01 Morbid (severe) obesity due to excess calories; E78.5 Hyperlipidemia, unspecified; E11.22 Type 2 diabetes mellitus with diabetic chronic kidney disease; E11.21 Type 2 diabetes mellitus with diabetic nephropathy; F32.9 Major depressive disorder, single episode, unspecified; I12.9 Hypertensive chronic kidney disease with stage 1 through stage 4 chronic kidney disease, or unspecified chronic kidney disease; E11.649 Type 2 diabetes mellitus with hypoglycemia without coma; I25.10 Atherosclerotic heart disease of native coronary artery without angina pectoris; Z82.49 Family history of ischemic heart disease and other diseases of the circulatory system; Y93.89 Activity, other specified; Y92.128 Other place in nursing home as the place of occurrence of the external cause; Y99.8 Other external cause status; I25.2 Old myocardial infarction; Z83.3 Family history of diabetes mellitus; Z86.73 Personal history of transient ischemic attack (TIA), and cerebral infarction without residual deficits
CPT/HCPCS: 36415; 70450; 71045; 73560; 73700; 74176; 80053; 81001; 82962; 83036; 83605; 83880; 84484; 85025; 85610; 85730; 87040; 87081; 87086; 93005; 94761; 96374; 96375; J0696; J1885; J2405; J3430